=== PATIENT | male | born 1960 | race African-American/Black ===

== ENCOUNTER 2017-02-20 12:20 | Emergency (ER) | payer MEDICAID, MEDICARE ==
[~2017-02-20] VITALS: Ht 175.3 cm; Wt 80.0 kg
[2017-02-20] MEDS ORDERED: KETOROLAC 60MG/2ML VIAL IM ONE (15:30)
[2017-02-20 17:49] VITALS: BP 136/81
== END 2017-02-20 19:02 | disposition home or self-care (01) ==
LOC: ER 12:58
DX: M54.5 Low back pain (principal); F10.129 Alcohol abuse with intoxication, unspecified; I10 Essential (primary) hypertension; Y90.8 Blood alcohol level of 240 mg/100 ml or more; W01.0XXA Fall on same level from slipping, tripping and stumbling without subsequent striking against object, initial encounter; Y93.89 Activity, other specified; Y92.511 Restaurant or cafe as the place of occurrence of the external cause
CPT/HCPCS: 36415; 72100; 96372; 99285; G0482; J1885; Z7610

== ENCOUNTER 2017-05-11 20:15 | Emergency (ER) | payer MEDICAID, OTHER ==
[~2017-05-11] VITALS: Ht 185.4 cm; Wt 95.0 kg
[2017-05-12 03:51] LABS: HEMATOCRIT. 28.4 % (42.0-52.0); HEMOGLOBIN. 9.6 g/dL (14.0-18.0); MEAN CORPUSCULAR HEMOGLOBIN 35.8 pg (28.0-32.0); MEAN CORPUSCULAR VOLUME 105.3 fL (80.0-94.0); MEAN PLATELET VOLUME 7.3 fl (7.4-10.4); PLATELET 212 x1000/uL (130-400); RED BLOOD CELL COUNT 2.69 mill/uL (4.7-6.1); RED CELL DISTRIBUTION WIDTH 13.3 % (11.6-14.6)
[2017-05-12 03:57] LABS: PROTHROMBIN TIME 10.8 sec (9.4-11.6)
[2017-05-12 04:06] LABS: CARBON DIOXIDE 27 mEq/L (21-32); CHLORIDE 106 mEq/L (98-107); TROPONIN I < 0.02 ng/mL (0.00-0.04)
[2017-05-12 04:42] LABS: PLATELET ESTIMATE NORMAL
[2017-05-12 05:40] VITALS: BP 108/66
== END 2017-05-12 05:45 | disposition home or self-care (01) ==
LOC: ER 20:15
DX: F10.20 Alcohol dependence, uncomplicated (principal); D63.8 Anemia in other chronic diseases classified elsewhere; Y90.9 Presence of alcohol in blood, level not specified; R06.02 Shortness of breath; R60.0 Localized edema; I10 Essential (primary) hypertension; Z96.659 Presence of unspecified artificial knee joint
CPT/HCPCS: 36415; 71010; 80053; 83880; 84484; 85025; 85610; 93005; 99285

== ENCOUNTER 2017-05-15 11:32 | Inpatient (IN) | payer MEDICAID, OTHER ==
[~2017-05-15] VITALS: Ht 185.4 cm; Wt 113.4 kg
[2017-05-15 14:08] LABS: BASOPHILS % 2.6 % (0.0-2.0); EOSINOPHILS % 2.8 % (0.0-5.0); HEMOGLOBIN. 10.8 g/dL (14.0-18.0); MEAN CORPUSCULAR HEMOGLOBIN 35.6 pg (28.0-32.0); MEAN CORPUSCULAR VOLUME 104.9 fL (80.0-94.0); MONOCYTES % 11.1 % (2.0-8.0); NEUTROPHILS % 49.5 % (40.0-76.0); PLATELET 388 x1000/uL (130-400); RED BLOOD CELL COUNT 3.05 mill/uL (4.7-6.1); RED CELL DISTRIBUTION WIDTH 13.1 % (11.6-14.6)
[2017-05-15 14:18] LABS: INR 1.1; PARTIAL THROMBOPLASTIN TIME 25.9 sec (23.4-31.0); PROTHROMBIN TIME 10.9 sec (9.4-11.6)
[2017-05-15 14:24] LABS: CARBON DIOXIDE 23 mEq/L (21-32); CHLORIDE 108 mEq/L (98-107); TROPONIN I < 0.02 ng/mL (0.00-0.04)
[2017-05-15 14:37] LABS: ETHANOL BLOOD 376 mg/dL
[2017-05-15] MEDS ORDERED: ASPIRIN 325MG EC TABLET PO ONE (15:30)
[2017-05-15] MEDS ORDERED: DEXT 5%/0.45% NACL 500ML 500 ML IV SCH (16:45)
[2017-05-15] MEDS: DEXT 5%/0.45% NACL 1000ML 1,000 ML IV SCH (17:24)
[2017-05-15] MEDS: AMLODIPINE 5MG TABLET PO SCH (17:24)
[2017-05-15 17:32] VITALS: BP 140/97
[2017-05-15] MEDS ORDERED: PNEUMOCOCCAL 23-VAL P-SAC VAC 0.5 ML IM ONE (19:00)
[2017-05-15] MEDS ORDERED: DOCUSATE SODIUM 100MG CAPSULE PO PRN (19:45)
[2017-05-15] MEDS ORDERED: ONDANSETRON HCL 4MG/2ML VIAL IV PRN (19:45)
[2017-05-15 20:00] VITALS: BP 99/44
[2017-05-15] MEDS: SODIUM CHLORIDE 0.9% INJ 3ML FLUSH IVF SCH (21:16)
[2017-05-15 22:56] LABS: CLARITY URINE CLEAR (CLEAR); COLOR URINE YELLOW (YELLOW); GLUCOSE URINE NEGATIVE (NEGATIVE); KETONES URINE NEGATIVE (NEGATIVE); LEUKOCYTE ESTERASE URINE NEGATIVE (NEGATIVE); NITRITE URINE NEGATIVE (NEGATIVE); OCCULT BLOOD URINE NEGATIVE (NEGATIVE); PROTEIN URINE NEGATIVE (NEGATIVE); SPECIFIC GRAVITY URINE 1.009 (1.005-1.030); UROBILINOGEN URINE 0.2 E.U./dL (0.2-1.0)
[2017-05-15 23:08] LABS: *AMPHETAMINES SCREEN URINE NEGATIVE (NEGATIVE); *BARBITURATES SCREEN URINE NEGATIVE (NEGATIVE); *BENZODIAZEPINES SCREEN URINE NEGATIVE (NEGATIVE); *COCAINE SCREEN URINE NEGATIVE (NEGATIVE); CANNABINOID URINE SCREEN NEGATIVE (NEGATIVE); METHADONE URINE SCREEN NEGATIVE (NEGATIVE); OPIATES URINE SCREEN NEGATIVE (NEGATIVE); PHENCYCLIDINE URINE SCREEN NEGATIVE (NEGATIVE)
[2017-05-16] VITALS: BP 100/59
[2017-05-16 04:00] VITALS: BP 155/88
[2017-05-16] MEDS: SODIUM CHLORIDE 0.9% INJ 3ML FLUSH IVF SCH ×3 (04:29→20:57)
[2017-05-16] MEDS: DEXT 5%/0.45% NACL 1000ML 1,000 ML IV SCH ×2 (04:29→17:43)
[2017-05-16] MEDS: ACETAMINOPHEN 325MG TABLET PO PRN ×2 (05:45→20:58)
[2017-05-16 06:32] LABS: HEMOGLOBIN. 11.1 g/dL (14.0-18.0); MEAN CORPUSCULAR HEMOGLOBIN 35.5 pg (28.0-32.0); MEAN PLATELET VOLUME 7.7 fl (7.4-10.4); PLATELET 383 x1000/uL (130-400); RED BLOOD CELL COUNT 3.14 mill/uL (4.7-6.1); RED CELL DISTRIBUTION WIDTH 13.2 % (11.6-14.6)
[2017-05-16 07:03] LABS: CHLORIDE 105 mEq/L (98-107)
[2017-05-16 07:30] LABS: CARBON DIOXIDE 26 mEq/L (21-32); CREATINE KINASE MB FRACTION 2.4 ng/mL (0.5-3.6); HDL CHOLESTEROL 116 mg/dL (40-59); LDL CHOLESTEROL 89 mg/dL (5-100); TROPONIN I < 0.02 ng/mL (0.00-0.04)
[2017-05-16 08:00] VITALS: BP 161/89
[2017-05-16] MEDS: AMLODIPINE 5MG TABLET PO SCH (08:33)
[2017-05-16] MEDS: MULTIVITAMINS,THER W-MINERALS TABLET PO SCH (08:33)
[2017-05-16] MEDS: ASPIRIN 81MG EC TABLET PO SCH (08:34)
[2017-05-16 14:16] LABS: NUCLEATED RED BLOOD CELLS 1 /100 WBC; PLATELET ESTIMATE NORMAL
[2017-05-16 16:00] VITALS: BP 143/86
[2017-05-16 20:00] VITALS: BP 147/89
[2017-05-17] VITALS: BP 140/89
[2017-05-17] MEDS: SODIUM CHLORIDE 0.9% INJ 3ML FLUSH IVF SCH ×3 (03:11→21:05)
[2017-05-17 04:00] VITALS: BP 134/87
[2017-05-17] MEDS: DEXT 5%/0.45% NACL 1000ML 1,000 ML IV SCH (05:26)
[2017-05-17 08:00] VITALS: BP 124/91
[2017-05-17] MEDS: MULTIVITAMINS,THER W-MINERALS TABLET PO SCH (08:49)
[2017-05-17] MEDS: AMLODIPINE 5MG TABLET PO SCH (08:49)
[2017-05-17] MEDS: ASPIRIN 81MG EC TABLET PO SCH (08:49)
[2017-05-17 08:52] LABS: BASOPHILS % 1.3 % (0.0-2.0); EOSINOPHILS % 1.7 % (0.0-5.0); HEMATOCRIT. 36.5 % (42.0-52.0); HEMOGLOBIN. 12.5 g/dL (14.0-18.0); LYMPHOCYTES % 21.9 % (20.0-50.0); MEAN CORPUSCULAR HEMOGLOBIN 35.9 pg (28.0-32.0); MEAN CORPUSCULAR VOLUME 104.9 fL (80.0-94.0); MEAN PLATELET VOLUME 7.8 fl (7.4-10.4); MONOCYTES % 12.6 % (2.0-8.0); NEUTROPHILS % 62.5 % (40.0-76.0); PLATELET 379 x1000/uL (130-400); RED BLOOD CELL COUNT 3.47 mill/uL (4.7-6.1); RED CELL DISTRIBUTION WIDTH 12.9 % (11.6-14.6)
[2017-05-17 09:23] LABS: AMYLASE 54 IU/L (25-115); CARBON DIOXIDE 28 mEq/L (21-32); CHLORIDE 98 mEq/L (98-107); TROPONIN I < 0.02 ng/mL (0.00-0.04)
[2017-05-17 12:00] VITALS: BP 130/98
[2017-05-17 16:00] VITALS: BP 132/82
[2017-05-17 20:00] VITALS: BP 130/97
[2017-05-18] VITALS: BP 137/84
[2017-05-18 04:00] VITALS: BP 126/71
[2017-05-18] MEDS: SODIUM CHLORIDE 0.9% INJ 3ML FLUSH IVF SCH (06:28)
[2017-05-18] MEDS: ACETAMINOPHEN 325MG TABLET PO PRN (09:02)
[2017-05-18] MEDS: AMLODIPINE 5MG TABLET PO SCH (09:02)
[2017-05-18] MEDS: ASPIRIN 81MG EC TABLET PO SCH (09:02)
[2017-05-18] MEDS: MULTIVITAMINS,THER W-MINERALS TABLET PO SCH (09:02)
[2017-05-18 10:21] LABS: BASOPHILS % 0.9 % (0.0-2.0); EOSINOPHILS % 2.2 % (0.0-5.0); HEMATOCRIT. 35.1 % (42.0-52.0); HEMOGLOBIN. 12.1 g/dL (14.0-18.0); MEAN CORPUSCULAR HEMOGLOBIN 36.6 pg (28.0-32.0); MEAN CORPUSCULAR VOLUME 105.9 fL (80.0-94.0); MEAN PLATELET VOLUME 7.7 fl (7.4-10.4); MONOCYTES % 12.8 % (2.0-8.0); NEUTROPHILS % 69.1 % (40.0-76.0); PLATELET 346 x1000/uL (130-400); RED BLOOD CELL COUNT 3.32 mill/uL (4.7-6.1); RED CELL DISTRIBUTION WIDTH 12.9 % (11.6-14.6)
[2017-05-18 10:38] VITALS: BP 126/88
[2017-05-18 10:45] LABS: CARBON DIOXIDE 28 mEq/L (21-32); CHLORIDE 102 mEq/L (98-107)
== END 2017-05-18 11:40 | disposition home or self-care (01) | DRG 282 ==
LOC: ER 11:35 → EDBEDREQTM 15:40 → EDBEDREQ 15:40 → ENRESERV 15:52 → 7WST 16:48
PROVIDERS: ADMIT Internal Medicine; ATTEND Internal Medicine
DX: K85.90 Acute pancreatitis without necrosis or infection, unspecified (principal); I24.9 Acute ischemic heart disease, unspecified; I11.9 Hypertensive heart disease without heart failure; F10.129 Alcohol abuse with intoxication, unspecified; F17.200 Nicotine dependence, unspecified, uncomplicated; Z96.659 Presence of unspecified artificial knee joint; Z60.2 Problems related to living alone; R60.0 Localized edema; Y90.8 Blood alcohol level of 240 mg/100 ml or more; Z71.6 Tobacco abuse counseling; Z59.0 Homelessness; Z79.899 Other long term (current) drug therapy
CPT/HCPCS: 36415; 71010; 80048; 80053; 80061; 80305; 81003; 82150; 82553; 83690; 83880; 84443; 84484; 85025; 85610; 85730; 87040; 87086; 87186; 93005; 93306; 93971; 97162; 99285; C1893; G0482; J2405; J3490

== ENCOUNTER 2017-05-21 18:35 | Inpatient (IN) | payer MEDICAID ==
[~2017-05-21] VITALS: Ht 185.4 cm; Wt 102.1 kg
[2017-05-21] MEDS ORDERED: SODIUM CHLORIDE 0.9% 1,000 ML IV ONE (19:26)
[2017-05-21] MEDS ORDERED: MAGNESIUM/ALUMINUM HYDROXIDE/SIMETHICONE 30ML UDC PO STA (19:26)
[2017-05-21] MEDS ORDERED: ONDANSETRON HCL 4MG/2ML VIAL IV STA (19:26)
[2017-05-21] MEDS ORDERED: FAMOTIDINE 20MG/2ML VIAL IV ONE (19:30)
[2017-05-21 19:56] LABS: HEMATOCRIT. 29.4 % (42.0-52.0); MEAN CORPUSCULAR HEMOGLOBIN 36.1 pg (28.0-32.0); MEAN CORPUSCULAR VOLUME 106.1 fL (80.0-94.0); MEAN PLATELET VOLUME 7.5 fl (7.4-10.4); PLATELET 226 x1000/uL (130-400); RED BLOOD CELL COUNT 2.77 mill/uL (4.7-6.1)
[2017-05-21 20:02] LABS: PARTIAL THROMBOPLASTIN TIME 26.8 sec (23.4-31.0); PROTHROMBIN TIME 10.5 sec (9.4-11.6)
[2017-05-21 20:11] LABS: CARBON DIOXIDE 25 mEq/L (21-32); CHLORIDE 106 mEq/L (98-107); TROPONIN I < 0.02 ng/mL (0.00-0.04)
[2017-05-21 20:13] LABS: ETHANOL BLOOD 353 mg/dL
[2017-05-21 20:14] LABS: PLATELET ESTIMATE NORMAL
[2017-05-21] MEDS ORDERED: MORPHINE SULFATE 4 MG/ML CPJ (NOT FOR IM USE) IV ONE (20:45)
[2017-05-21] MEDS ORDERED: ONDANSETRON HCL 4MG/2ML VIAL IV ONE (20:45)
[2017-05-21 23:54] LABS: CLARITY URINE CLEAR (CLEAR); COLOR URINE YELLOW (YELLOW); GLUCOSE URINE NEGATIVE (NEGATIVE); KETONES URINE NEGATIVE (NEGATIVE); LEUKOCYTE ESTERASE URINE NEGATIVE (NEGATIVE); NITRITE URINE NEGATIVE (NEGATIVE); OCCULT BLOOD URINE NEGATIVE (NEGATIVE); PROTEIN URINE NEGATIVE (NEGATIVE); SPECIFIC GRAVITY URINE 1.016 (1.005-1.030); UROBILINOGEN URINE 0.2 E.U./dL (0.2-1.0)
[2017-05-22 00:30] LABS: *AMPHETAMINES SCREEN URINE NEGATIVE (NEGATIVE); *BARBITURATES SCREEN URINE NEGATIVE (NEGATIVE); *BENZODIAZEPINES SCREEN URINE NEGATIVE (NEGATIVE); *COCAINE SCREEN URINE NEGATIVE (NEGATIVE); CANNABINOID URINE SCREEN PRESUMTIVE POSITIVE (NEGATIVE); METHADONE URINE SCREEN NEGATIVE (NEGATIVE); OPIATES URINE SCREEN NEGATIVE (NEGATIVE); PHENCYCLIDINE URINE SCREEN NEGATIVE (NEGATIVE)
[2017-05-22 04:00] VITALS: BP 114/66
[2017-05-22] MEDS ORDERED: ONDANSETRON HCL 4MG/2ML VIAL IV PRN (05:15)
[2017-05-22] MEDS ORDERED: PANTOPRAZOLE SODIUM 40 MG/VIAL IV SCH (06:00)
[2017-05-22] MEDS: DEXT 5%/0.45% NACL KCL 20MEQ/L 1,000 ML IV SCH (07:00)
[2017-05-22 08:00] VITALS: BP 148/91
[2017-05-22] MEDS ORDERED: KETO5DRO7 (08:21)
[2017-05-22] MEDS ORDERED: AMLO10TA80 PO (08:21)
[2017-05-22] MEDS ORDERED: IBUP-2030 PO (08:21)
[2017-05-22] MEDS ORDERED: LOSA25TA12 (08:21)
[2017-05-22] MEDS ORDERED: THIAMINE HCL 100 MG/1 ML 2ML VIAL ONE (09:17)
[2017-05-22 09:32] LABS: HEMATOCRIT. 30.9 % (42.0-52.0); HEMOGLOBIN. 10.6 g/dL (14.0-18.0); MEAN CORPUSCULAR HEMOGLOBIN 36.2 pg (28.0-32.0); MEAN PLATELET VOLUME 7.6 fl (7.4-10.4); PLATELET 232 x1000/uL (130-400); RED BLOOD CELL COUNT 2.92 mill/uL (4.7-6.1); RED CELL DISTRIBUTION WIDTH 12.9 % (11.6-14.6)
[2017-05-22 10:00] LABS: CARBON DIOXIDE 25 mEq/L (21-32); CHLORIDE 108 mEq/L (98-107)
[2017-05-22] MEDS: FAMOTIDINE 20MG/2ML VIAL IV SCH ×2 (10:21→21:00)
[2017-05-22] MEDS: FOLIC ACID 1 MG, THIAMINE HCL 100 MG, MVI, ADULT NO.1 10 ML in DEXTROSE 5% WATER 1,000 ML IV NR ×8 (10:22→16:00)
[2017-05-22 12:00] VITALS: BP 149/89
[2017-05-22 16:00] VITALS: BP 151/91
[2017-05-22 20:00] VITALS: BP 152/95
[2017-05-22 22:39] LABS: PLATELET ESTIMATE NORMAL
[2017-05-23] VITALS: BP 143/84
[2017-05-23] MEDS: DEXT 5%/0.45% NACL KCL 20MEQ/L 1,000 ML IV SCH ×3 (00:09→17:15)
[2017-05-23] MEDS: MORPHINE SULFATE 4 MG/ML CPJ (NOT FOR IM USE) IV PRN ×5 (00:43→22:07)
[2017-05-23 08:00] VITALS: BP 142/92
[2017-05-23] MEDS: FAMOTIDINE 20MG/2ML VIAL IV SCH ×2 (08:32→21:21)
[2017-05-23 12:00] VITALS: BP 123/85
[2017-05-23] MEDS: CHLORDIAZEPOXIDE 25MG CAPSULE PO SCH ×2 (14:48→21:21)
[2017-05-23 16:00] VITALS: BP 132/79
[2017-05-23 20:00] VITALS: BP 127/85
[2017-05-24] VITALS: BP 128/81
[2017-05-24 04:00] VITALS: BP 128/78
[2017-05-24] MEDS: CHLORDIAZEPOXIDE 25MG CAPSULE PO SCH (05:36)
[2017-05-24] MEDS: MORPHINE SULFATE 4 MG/ML CPJ (NOT FOR IM USE) IV PRN ×2 (05:37→11:42)
[2017-05-24] MEDS: DEXT 5%/0.45% NACL KCL 20MEQ/L 1,000 ML IV SCH ×2 (05:43→08:48)
[2017-05-24] MEDS: FAMOTIDINE 20MG/2ML VIAL IV SCH (08:48)
[2017-05-24] MEDS ORDERED: IBUPROFEN 800MG TABLET PO PRN (15:45)
[2017-05-24 15:50] VITALS: BP 115/81
[2017-05-25] MEDS ORDERED: AMLODIPINE 10MG TABLET PO SCH (09:00)
== END 2017-05-24 15:50 | disposition home or self-care (01) | DRG 282 ==
LOC: ER 18:35 → 6EST 20:43 → EDBEDREQ 20:46 → ENRESERV 05-22 01:47
PROVIDERS: ADMIT Internal Medicine; ATTEND Internal Medicine
DX: K85.20 Alcohol induced acute pancreatitis without necrosis or infection (principal); R16.0 Hepatomegaly, not elsewhere classified; I10 Essential (primary) hypertension; G57.93 Unspecified mononeuropathy of bilateral lower limbs; Z96.659 Presence of unspecified artificial knee joint; F10.129 Alcohol abuse with intoxication, unspecified; J45.909 Unspecified asthma, uncomplicated
CPT/HCPCS: 36415; 71010; 76705; 80053; 80305; 81003; 83690; 83880; 84484; 85025; 85610; 85730; 93005; 96361; 96374; 96375; 97116; 97162; 99285; G0482; J2270; J2405; J3411; J3490; J7030; J7070

== ENCOUNTER 2017-05-25 14:59 | Emergency (ER) | payer MEDICAID ==
[~2017-05-25] VITALS: Ht 180.3 cm; Wt 80.0 kg
[~2017-05-25 14:59] MED LIST: AMLO10TA80 PO; IBUP-2030 PO; KETO5DRO7; LOSA25TA12
[2017-05-25] MEDS ORDERED: IBUPROFEN 600MG TABLET PO STA (15:15)
[2017-05-25 15:38] VITALS: BP 120/76
[2017-05-25 15:49] LABS: CHLORIDE 104 mEq/L (98-107); EOSINOPHILS % 1.6 % (0.0-5.0); HEMATOCRIT. 31.9 % (42.0-52.0); HEMOGLOBIN. 10.9 g/dL (14.0-18.0); LYMPHOCYTES % 24.6 % (20.0-50.0); MEAN CORPUSCULAR HEMOGLOBIN 35.8 pg (28.0-32.0); MEAN CORPUSCULAR VOLUME 104.8 fL (80.0-94.0); MEAN PLATELET VOLUME 8.1 fl (7.4-10.4); MONOCYTES % 13.8 % (2.0-8.0); PLATELET 225 x1000/uL (130-400); RED BLOOD CELL COUNT 3.05 mill/uL (4.7-6.1); RED CELL DISTRIBUTION WIDTH 12.2 % (11.6-14.6)
[2017-05-25 15:55] LABS: CARBON DIOXIDE 21 mEq/L (21-32)
[2017-05-25 16:20] LABS: ETHANOL BLOOD 308 mg/dL
== END 2017-05-25 17:27 | disposition left against medical advice (07) ==
LOC: ER 15:04
DX: K86.1 Other chronic pancreatitis (principal); F10.129 Alcohol abuse with intoxication, unspecified; M25.561 Pain in right knee; M25.562 Pain in left knee; J45.909 Unspecified asthma, uncomplicated; I10 Essential (primary) hypertension; Z96.659 Presence of unspecified artificial knee joint
CPT/HCPCS: 36415; 80053; 83690; 85025; 99284; G0482; Z7610

== ENCOUNTER 2017-05-25 21:07 | Emergency (ER) | payer MEDICAID ==
[~2017-05-25] VITALS: Ht 185.4 cm; Wt 102.0 kg
[2017-05-25 21:35] VITALS: BP 134/76
== END 2017-05-26 01:17 | disposition left against medical advice (07) ==
LOC: ER 22:39
DX: Z53.21 Procedure and treatment not carried out due to patient leaving prior to being seen by health care provider (principal)

== ENCOUNTER 2017-05-27 23:21 | Inpatient (IN) | payer MEDICAID, OTHER ==
[~2017-05-27] VITALS: Ht 185.4 cm; Wt 101.6 kg
[2017-05-27] MEDS ORDERED: SODIUM CHLORIDE 0.9% 1,000 ML IV ONE (23:51)
[2017-05-27] MEDS ORDERED: ONDANSETRON HCL 4MG/2ML VIAL IV STA (23:51)
[2017-05-27] MEDS ORDERED: MORPHINE SULFATE 4 MG/ML CPJ (NOT FOR IM USE) IV STA (23:51)
[2017-05-28 00:20] LABS: HEMATOCRIT. 30.9 % (42.0-52.0); HEMOGLOBIN. 10.5 g/dL (14.0-18.0); MEAN CORPUSCULAR HEMOGLOBIN 35.7 pg (28.0-32.0); MEAN CORPUSCULAR VOLUME 105.4 fL (80.0-94.0); MEAN PLATELET VOLUME 8.9 fl (7.4-10.4); PLATELET 178 x1000/uL (130-400); RED BLOOD CELL COUNT 2.93 mill/uL (4.7-6.1); RED CELL DISTRIBUTION WIDTH 12.8 % (11.6-14.6)
[2017-05-28 00:23] LABS: CHLORIDE 109 mEq/L (98-107)
[2017-05-28 00:24] LABS: CLARITY URINE CLEAR (CLEAR); COLOR URINE YELLOW (YELLOW); GLUCOSE URINE NEGATIVE (NEGATIVE); KETONES URINE NEGATIVE (NEGATIVE); LEUKOCYTE ESTERASE URINE NEGATIVE (NEGATIVE); NITRITE URINE NEGATIVE (NEGATIVE); OCCULT BLOOD URINE NEGATIVE (NEGATIVE); PROTEIN URINE NEGATIVE (NEGATIVE); SPECIFIC GRAVITY URINE 1.014 (1.005-1.030); UROBILINOGEN URINE 0.2 E.U./dL (0.2-1.0)
[2017-05-28 00:25] LABS: PROTHROMBIN TIME 10.7 sec (9.4-11.6)
[2017-05-28 00:31] LABS: CARBON DIOXIDE 25 mEq/L (21-32)
[2017-05-28 02:00] LABS: ATYPICAL LYMPHOCYTES 1; PLATELET ESTIMATE NORMAL
[2017-05-28] MEDS ORDERED: MORPHINE SULFATE 4 MG/ML CPJ (NOT FOR IM USE) IV ONE (02:00)
[2017-05-28] MEDS ORDERED: ONDANSETRON HCL 4MG/2ML VIAL IV ONE (02:00)
[2017-05-28] MEDS ORDERED: DIATR MEGLU/DIATRIZOATE SOLN 120ML ONE (06:00)
[2017-05-28 08:00] VITALS: BP 146/81
[2017-05-28 08:30] VITALS: BP 146/81
[2017-05-28] MEDS ORDERED: HYDROCODONE/ACETAMINOPHEN 10/325MG TABLET PO PRN (09:45)
[2017-05-28] MEDS ORDERED: LORAZEPAM 2MG/ML CPJ IV PRN (09:45)
[2017-05-28 10:59] LABS: BASOPHILS % 0.6 % (0.0-2.0); EOSINOPHILS % 1.1 % (0.0-5.0); HEMATOCRIT. 31.9 % (42.0-52.0); HEMOGLOBIN. 10.7 g/dL (14.0-18.0); LYMPHOCYTES % 24.4 % (20.0-50.0); MEAN CORPUSCULAR HEMOGLOBIN 35.3 pg (28.0-32.0); MEAN CORPUSCULAR VOLUME 105.4 fL (80.0-94.0); MEAN PLATELET VOLUME 8.1 fl (7.4-10.4); MONOCYTES % 13.9 % (2.0-8.0); PLATELET 168 x1000/uL (130-400); RED BLOOD CELL COUNT 3.03 mill/uL (4.7-6.1); RED CELL DISTRIBUTION WIDTH 12.4 % (11.6-14.6)
[2017-05-28] MEDS ORDERED: FOLIC ACID 1 MG, THIAMINE HCL 100 MG, MVI, ADULT NO.1 10 ML in DEXTROSE 5% WATER 1,000 ML IV ONE ×4 (11:30)
[2017-05-28 11:31] LABS: CARBON DIOXIDE 28 mEq/L (21-32); CHLORIDE 112 mEq/L (98-107)
[2017-05-28 12:00] VITALS: BP 133/74
[2017-05-28 16:39] VITALS: BP 133/76
[2017-05-28] MEDS ORDERED: DEXTROSE 5% WATER 1,000 ML IV SCH (20:00)
[2017-05-29] MEDS ORDERED: FOLIC ACID 1 MG, THIAMINE HCL 100 MG, MVI, ADULT NO.1 10 ML in DEXTROSE 5% WATER 1,000 ML IV SCH ×4 (12:30)
== END 2017-05-28 17:00 | disposition home or self-care (01) | DRG 48 ==
LOC: ER 23:21 → 6EST 05-28 03:06 → ENRESERV 05-28 07:04 → 6EST 05-28 12:30
PROVIDERS: ADMIT Internal Medicine; ATTEND Internal Medicine
DX: G62.1 Alcoholic polyneuropathy (principal); I10 Essential (primary) hypertension; F17.210 Nicotine dependence, cigarettes, uncomplicated; M10.9 Gout, unspecified; K57.90 Diverticulosis of intestine, part unspecified, without perforation or abscess without bleeding; K46.9 Unspecified abdominal hernia without obstruction or gangrene; F10.10 Alcohol abuse, uncomplicated; Z82.49 Family history of ischemic heart disease and other diseases of the circulatory system; Z79.899 Other long term (current) drug therapy
CPT/HCPCS: 36415; 71010; 74176; 80053; 81003; 83605; 83690; 85025; 85610; 86850; 86900; 93005; 96374; 96375; 96376; 99291; J2270; J2405; J3411; J3490; J7030; J7070; Q9963

== ENCOUNTER 2017-05-31 23:07 | Emergency (ER) | payer MEDICAID ==
[~2017-05-31] VITALS: Ht 185.4 cm; Wt 91.0 kg
[2017-06-01 00:57] LABS: BASOPHILS % 0.3 % (0.0-2.0); EOSINOPHILS % 1.9 % (0.0-5.0); HEMATOCRIT. 31.1 % (42.0-52.0); HEMOGLOBIN. 10.7 g/dL (14.0-18.0); LYMPHOCYTES % 33.2 % (20.0-50.0); MEAN CORPUSCULAR HEMOGLOBIN 35.8 pg (28.0-32.0); MEAN CORPUSCULAR VOLUME 103.5 fL (80.0-94.0); MEAN PLATELET VOLUME 8.5 fl (7.4-10.4); MONOCYTES % 11.9 % (2.0-8.0); NEUTROPHILS % 52.7 % (40.0-76.0); PLATELET 159 x1000/uL (130-400); RED CELL DISTRIBUTION WIDTH 12.4 % (11.6-14.6)
[2017-06-01 01:02] LABS: CHLORIDE 101 mEq/L (98-107)
[2017-06-01 01:11] LABS: CARBON DIOXIDE 25 mEq/L (21-32)
[2017-06-01 01:30] LABS: *AMPHETAMINES SCREEN URINE NEGATIVE (NEGATIVE); *BARBITURATES SCREEN URINE NEGATIVE (NEGATIVE); *BENZODIAZEPINES SCREEN URINE PRESUMTIVE POSITIVE (NEGATIVE); *COCAINE SCREEN URINE NEGATIVE (NEGATIVE); CANNABINOID URINE SCREEN PRESUMTIVE POSITIVE (NEGATIVE); METHADONE URINE SCREEN NEGATIVE (NEGATIVE); OPIATES URINE SCREEN PRESUMTIVE POSITIVE (NEGATIVE); PHENCYCLIDINE URINE SCREEN NEGATIVE (NEGATIVE)
[2017-06-01 01:36] LABS: BG BASE EXCESS -5.2 mmol/L (-2.0-2.0); BG CARBOXYHEMOGLOBIN 1.1 % (0.5-1.5); BG DEOXYHEMOGLOBIN 5.5 % (0.0-5.0); BG FRACTION INSPIRED OXYGEN 21; BG HCO3 ACT 19.7 mmol/L (22.0-26.0); BG METHEMOGLOBIN 0.3 % (0.0-1.5); BG OXYGEN SATURATION 94.4 % (92.0-98.5); BG OXYHEMOGLOBIN 93.1 % (94.0-97.0); BG PCO2 36.4 mmHg (35.0-45.0); BG PH 7.352 (7.350-7.450); BG PO2 84.5 mmHg (75.0-100.0); BG SAMPLE SITE RIGHT RADIAL; BG TOTAL HEMOGLOBIN 11.6 g/dL (12.0-18.0); BG VENT MODE ROOM AIR
[2017-06-01 01:43] LABS: ETHANOL BLOOD 307 mg/dL
[2017-06-01 09:30] VITALS: BP 128/82
== END 2017-06-01 10:04 | disposition home or self-care (01) ==
LOC: ER 23:07
DX: T51.8X1A Toxic effect of other alcohols, accidental (unintentional), initial encounter (principal); G93.40 Encephalopathy, unspecified; I10 Essential (primary) hypertension; F17.200 Nicotine dependence, unspecified, uncomplicated; Y92.89 Other specified places as the place of occurrence of the external cause; Y90.8 Blood alcohol level of 240 mg/100 ml or more
CPT/HCPCS: 36415; 36600; 70450; 71010; 80053; 80305; 80307; 80329; 82375; 82805; 85025; 93005; 99285; G0482; Z7610

== ENCOUNTER 2017-06-08 22:00 | Emergency (ER) | payer MEDICAID, OTHER ==
[~2017-06-08] VITALS: Ht 185.4 cm; Wt 92.0 kg
[2017-06-08] MEDS ORDERED: KETOROLAC 60MG/2ML VIAL IM ONE (23:45)
[2017-06-09 00:27] LABS: CHLORIDE 104 mEq/L (98-107)
[2017-06-09 00:28] LABS: BASOPHILS % 0.7 % (0.0-2.0); EOSINOPHILS % 4.9 % (0.0-5.0); HEMATOCRIT. 29.6 % (42.0-52.0); HEMOGLOBIN. 10.1 g/dL (14.0-18.0); LYMPHOCYTES % 38.1 % (20.0-50.0); MEAN CORPUSCULAR HEMOGLOBIN 35.6 pg (28.0-32.0); MEAN CORPUSCULAR VOLUME 104.3 fL (80.0-94.0); MONOCYTES % 14.1 % (2.0-8.0); NEUTROPHILS % 42.2 % (40.0-76.0); PLATELET 245 x1000/uL (130-400); RED BLOOD CELL COUNT 2.84 mill/uL (4.7-6.1); RED CELL DISTRIBUTION WIDTH 12.4 % (11.6-14.6)
[2017-06-09 00:36] LABS: CARBON DIOXIDE 25 mEq/L (21-32); ETHANOL BLOOD 230 mg/dL
[2017-06-09 06:46] VITALS: BP 145/94
== END 2017-06-09 06:46 | disposition home or self-care (01) ==
LOC: ER 23:20
DX: F10.10 Alcohol abuse, uncomplicated (principal); R53.1 Weakness; R42 Dizziness and giddiness; F17.200 Nicotine dependence, unspecified, uncomplicated; I10 Essential (primary) hypertension
CPT/HCPCS: 36415; 73130; 80053; 80307; 85025; 96372; 99285; G0482; J1885; Z7610

== ENCOUNTER 2017-06-16 10:29 | Emergency (ER) | payer OTHER ==
[~2017-06-16] VITALS: Ht 180.3 cm; Wt 110.0 kg
[2017-06-16 14:38] VITALS: BP 114/81
== END 2017-06-16 15:31 | disposition left against medical advice (07) ==
LOC: ER 10:50
DX: M79.89 Other specified soft tissue disorders (principal); Z53.21 Procedure and treatment not carried out due to patient leaving prior to being seen by health care provider

== ENCOUNTER 2017-06-18 22:30 | Emergency (ER) | payer OTHER ==
[~2017-06-18] VITALS: Ht 185.4 cm; Wt 90.0 kg
[2017-06-19] MEDS ORDERED: SODIUM CHLORIDE 0.9% 1,000 ML IV ONE (05:00)
[2017-06-19 05:21] LABS: BASOPHILS % 0.7 % (0.0-2.0); EOSINOPHILS % 5.8 % (0.0-5.0); HEMATOCRIT. 30.7 % (42.0-52.0); HEMOGLOBIN. 10.4 g/dL (14.0-18.0); LYMPHOCYTES % 40.7 % (20.0-50.0); MEAN CORPUSCULAR HEMOGLOBIN 35.7 pg (28.0-32.0); MEAN CORPUSCULAR VOLUME 105.3 fL (80.0-94.0); MEAN PLATELET VOLUME 7.6 fl (7.4-10.4); MONOCYTES % 11.7 % (2.0-8.0); NEUTROPHILS % 41.1 % (40.0-76.0); PLATELET 194 x1000/uL (130-400); RED BLOOD CELL COUNT 2.92 mill/uL (4.7-6.1); RED CELL DISTRIBUTION WIDTH 13.1 % (11.6-14.6)
[2017-06-19 05:35] LABS: CARBON DIOXIDE 23 mEq/L (21-32); CHLORIDE 113 mEq/L (98-107); ETHANOL BLOOD 244 mg/dL
[2017-06-19 08:00] VITALS: BP 157/52
== END 2017-06-19 08:17 | disposition home or self-care (01) ==
LOC: ER 22:30
DX: F10.129 Alcohol abuse with intoxication, unspecified (principal); Y90.7 Blood alcohol level of 200-239 mg/100 ml; R11.10 Vomiting, unspecified; M79.89 Other specified soft tissue disorders; I10 Essential (primary) hypertension; J45.909 Unspecified asthma, uncomplicated; Z91.81 History of falling
CPT/HCPCS: 36415; 80053; 83690; 85025; 96360; 99284; G0482; J7030

== ENCOUNTER 2017-06-19 15:59 | Emergency (ER) | payer OTHER ==
[~2017-06-19] VITALS: Ht 185.4 cm; Wt 99.8 kg
[2017-06-19 16:00] VITALS: BP 108/71
== END 2017-06-19 20:30 | disposition left against medical advice (07) ==
LOC: ER 15:59
DX: Z53.21 Procedure and treatment not carried out due to patient leaving prior to being seen by health care provider (principal)

== ENCOUNTER 2017-06-19 22:26 | Emergency (ER) | payer OTHER ==
[~2017-06-19] VITALS: Ht 185.4 cm; Wt 95.0 kg
[2017-06-19 22:29] VITALS: BP 144/90
== END 2017-06-19 22:30 | disposition left against medical advice (07) ==
LOC: ER 22:26
DX: Z53.21 Procedure and treatment not carried out due to patient leaving prior to being seen by health care provider (principal); I10 Essential (primary) hypertension; F17.210 Nicotine dependence, cigarettes, uncomplicated; M10.9 Gout, unspecified; F10.10 Alcohol abuse, uncomplicated

== ENCOUNTER 2017-06-25 21:49 | Emergency (ER) | payer MEDICAID, OTHER ==
[~2017-06-25] VITALS: Ht 185.4 cm; Wt 95.4 kg
[2017-06-26] MEDS ORDERED: IBUPROFEN 600MG TABLET PO ONE (01:30)
[2017-06-26 01:50] LABS: BASOPHILS % 0.5 % (0.0-2.0); EOSINOPHILS % 5.7 % (0.0-5.0); HEMATOCRIT. 30.3 % (42.0-52.0); HEMOGLOBIN. 10.5 g/dL (14.0-18.0); MEAN CORPUSCULAR HEMOGLOBIN 36.9 pg (28.0-32.0); MEAN CORPUSCULAR VOLUME 106.6 fL (80.0-94.0); MEAN PLATELET VOLUME 7.4 fl (7.4-10.4); MONOCYTES % 14.7 % (2.0-8.0); NEUTROPHILS % 38.1 % (40.0-76.0); PLATELET 128 x1000/uL (130-400); RED BLOOD CELL COUNT 2.85 mill/uL (4.7-6.1); RED CELL DISTRIBUTION WIDTH 12.8 % (11.6-14.6)
[2017-06-26 01:59] LABS: CHLORIDE 110 mEq/L (98-107)
[2017-06-26 02:07] LABS: CARBON DIOXIDE 24 mEq/L (21-32); ETHANOL BLOOD 224 mg/dL
[2017-06-26 04:39] LABS: CLARITY URINE CLEAR (CLEAR); COLOR URINE YELLOW (YELLOW); GLUCOSE URINE NEGATIVE (NEGATIVE); KETONES URINE NEGATIVE (NEGATIVE); LEUKOCYTE ESTERASE URINE NEGATIVE (NEGATIVE); NITRITE URINE NEGATIVE (NEGATIVE); OCCULT BLOOD URINE NEGATIVE (NEGATIVE); PROTEIN URINE NEGATIVE (NEGATIVE); SPECIFIC GRAVITY URINE 1.013 (1.005-1.030); UROBILINOGEN URINE 0.2 E.U./dL (0.2-1.0)
[2017-06-26 04:51] LABS: *AMPHETAMINES SCREEN URINE NEGATIVE (NEGATIVE); *BARBITURATES SCREEN URINE NEGATIVE (NEGATIVE); *BENZODIAZEPINES SCREEN URINE NEGATIVE (NEGATIVE); *COCAINE SCREEN URINE NEGATIVE (NEGATIVE); CANNABINOID URINE SCREEN NEGATIVE (NEGATIVE); METHADONE URINE SCREEN NEGATIVE (NEGATIVE); OPIATES URINE SCREEN NEGATIVE (NEGATIVE); PHENCYCLIDINE URINE SCREEN NEGATIVE (NEGATIVE)
[2017-06-26 05:33] VITALS: BP 123/66
== END 2017-06-26 05:48 | disposition home or self-care (01) ==
LOC: ER 22:47
DX: S70.01XA Contusion of right hip, initial encounter (principal); M25.552 Pain in left hip; W01.0XXA Fall on same level from slipping, tripping and stumbling without subsequent striking against object, initial encounter; Y93.89 Activity, other specified; I10 Essential (primary) hypertension; Y92.89 Other specified places as the place of occurrence of the external cause; M10.9 Gout, unspecified; D53.9 Nutritional anemia, unspecified; D72.819 Decreased white blood cell count, unspecified; F10.229 Alcohol dependence with intoxication, unspecified; F17.210 Nicotine dependence, cigarettes, uncomplicated; Z98.890 Other specified postprocedural states
CPT/HCPCS: 36415; 73522; 80053; 80305; 81003; 85025; 99285; G0482

== ENCOUNTER 2018-04-18 13:28 | Emergency (ER) | payer MEDICAID, OTHER ==
[~2018-04-18] VITALS: Ht 185.4 cm; Wt 89.0 kg
[2018-04-18] MEDS ORDERED: HYDROCODONE/ACETAMINOPHEN 5/325MG TABLET PO ONE (14:45)
[2018-04-18 15:20] LABS: EOSINOPHILS % 1.3 % (0.0-5.0); HEMATOCRIT. 24.1 % (42.0-52.0); HEMOGLOBIN. 7.9 g/dL (14.0-18.0); LYMPHOCYTES % 11.1 % (20.0-50.0); MEAN CORPUSCULAR HEMOGLOBIN 38.4 pg (28.0-32.0); MEAN CORPUSCULAR VOLUME 117.4 fL (80.0-94.0); MEAN PLATELET VOLUME 7.6 fl (7.4-10.4); NEUTROPHILS % 75.6 % (40.0-76.0); PLATELET 707 x1000/uL (130-400); RED BLOOD CELL COUNT 2.05 mill/uL (4.7-6.1); RED CELL DISTRIBUTION WIDTH 18.6 % (11.6-14.6)
[2018-04-18 15:27] LABS: CHLORIDE 107 mEq/L (98-107)
[2018-04-18 15:28] LABS: INR 1.2; PARTIAL THROMBOPLASTIN TIME 28.7 sec (23.4-31.0); PROTHROMBIN TIME 11.7 sec (9.1-11.1)
[2018-04-18 15:42] LABS: PLATELET ESTIMATE MARKEDLY INCREASED
[2018-04-18 16:21] LABS: *AMPHETAMINES SCREEN URINE NEGATIVE (NEGATIVE)
[2018-04-18 16:22] LABS: *BARBITURATES SCREEN URINE NEGATIVE (NEGATIVE); *BENZODIAZEPINES SCREEN URINE PRESUMTIVE POSITIVE (NEGATIVE); *COCAINE SCREEN URINE NEGATIVE (NEGATIVE); METHADONE URINE SCREEN NEGATIVE (NEGATIVE)
[2018-04-18 16:23] LABS: CANNABINOID URINE SCREEN NEGATIVE (NEGATIVE); OPIATES URINE SCREEN NEGATIVE (NEGATIVE); PHENCYCLIDINE URINE SCREEN NEGATIVE (NEGATIVE)
[2018-04-18 18:00] VITALS: BP 115/60
[2018-04-20] MEDS ORDERED: LOSA25TA12 MT (13:02)
== END 2018-04-18 18:23 | disposition home or self-care (01) ==
LOC: ER 13:28
DX: M79.605 Pain in left leg (principal); M79.604 Pain in right leg; G89.29 Other chronic pain; R60.0 Localized edema; I10 Essential (primary) hypertension
CPT/HCPCS: 36415; 71045; 80053; 80305; 83690; 83880; 84484; 85025; 85610; 85730; 93970; 99285

== ENCOUNTER 2018-04-23 18:28 | Emergency (ER) | payer MEDICAID ==
[~2018-04-23] VITALS: Ht 180.3 cm; Wt 80.0 kg
[~2018-04-23 18:28] MED LIST changes: +LOSA25TA12 MT
[2018-04-23 21:40] VITALS: BP 102/60
[2018-04-23] MEDS ORDERED: IBUPROFEN 600MG TABLET PO ONE (21:45)
== END 2018-04-23 21:55 | disposition home or self-care (01) ==
LOC: ER 18:44
DX: M79.672 Pain in left foot (principal); M79.671 Pain in right foot; M10.9 Gout, unspecified; J45.909 Unspecified asthma, uncomplicated; E11.9 Type 2 diabetes mellitus without complications; Z79.899 Other long term (current) drug therapy
CPT/HCPCS: 99283

== ENCOUNTER 2021-01-10 20:52 | Emergency (ER) | payer MEDICAID ==
[~2021-01-10] VITALS: Ht 172.7 cm; Wt 99.8 kg
[~2021-01-10 20:52] MED LIST changes: -KETO5DRO7; -LOSA25TA12; -LOSA25TA12 MT; +LOSA25TA26 MT; +PROT20 PO
[2021-01-10] MEDS ORDERED: ASPIRIN 325MG EC TABLET PO ONE (22:45)
[2021-01-10 23:12] LABS: *AMPHETAMINES SCREEN URINE NEGATIVE (NEGATIVE); *BARBITURATES SCREEN URINE NEGATIVE (NEGATIVE)
[2021-01-10 23:13] LABS: *BENZODIAZEPINES SCREEN URINE NEGATIVE (NEGATIVE); *COCAINE SCREEN URINE NEGATIVE (NEGATIVE); CANNABINOID URINE SCREEN NEGATIVE (NEGATIVE); METHADONE URINE SCREEN NEGATIVE (NEGATIVE); OPIATES URINE SCREEN NEGATIVE (NEGATIVE); PHENCYCLIDINE URINE SCREEN NEGATIVE (NEGATIVE)
[2021-01-10 23:38] LABS: BASOPHILS % 0.5 % (0.0-2.0); HEMATOCRIT. 35.3 % (42.0-52.0); LYMPHOCYTES % 38.3 % (20.0-50.0); MEAN CORPUSCULAR HEMOGLOBIN 35.1 pg (28.0-32.0); MEAN CORPUSCULAR VOLUME 103.4 fL (80.0-94.0); MEAN PLATELET VOLUME 8.5 fl (7.4-10.4); MONOCYTES % 14.7 % (2.0-8.0); NEUTROPHILS % 42.5 % (40.0-76.0); PLATELET 182 x1000/uL (130-400); RED BLOOD CELL COUNT 3.41 mill/uL (4.7-6.1); RED CELL DISTRIBUTION WIDTH 13.8 % (11.6-14.6)
[2021-01-10 23:43] LABS: CHLORIDE 102 mEq/L (98-107)
[2021-01-10 23:48] LABS: ETHANOL BLOOD 138 mg/dL
[2021-01-11] MEDS ORDERED: POTASSIUM CHLORIDE 20MEQ TABLET SR PO NR (01:00)
[2021-01-11 02:53] VITALS: BP 120/84
== END 2021-01-11 02:55 | disposition home or self-care (01) ==
LOC: ER 20:52
DX: F10.129 Alcohol abuse with intoxication, unspecified (principal); Y90.6 Blood alcohol level of 120-199 mg/100 ml; I10 Essential (primary) hypertension; Z79.899 Other long term (current) drug therapy
CPT/HCPCS: 36415; 71045; 80053; 80305; 80320; 83880; 84484; 85025; 93005; 99285; G0480

== ENCOUNTER 2023-02-24 02:58 | Emergency (ER) | payer MEDICAID, OTHER ==
[~2023-02-24] VITALS: Ht 175.3 cm; Wt 96.0 kg
[2023-02-24 09:00] VITALS: BP 128/72
[2023-02-24] MEDS ORDERED: KETOROLAC 30MG/ML VIAL IM ONE (09:00)
[2023-02-24] MEDS ORDERED: NAPR-681 MT (09:31)
== END 2023-02-24 10:13 | disposition home or self-care (01) ==
LOC: ER 02:58
DX: S83.91XA Sprain of unspecified site of right knee, initial encounter (principal); I10 Essential (primary) hypertension; W01.0XXA Fall on same level from slipping, tripping and stumbling without subsequent striking against object, initial encounter; Y93.89 Activity, other specified; Y92.89 Other specified places as the place of occurrence of the external cause; Y99.8 Other external cause status
CPT/HCPCS: 73560; 73600; 96372; 99284; J1885

== ENCOUNTER 2023-10-22 22:27 | Emergency (ER) | payer OTHER ==
[~2023-10-22] VITALS: Ht 172.7 cm; Wt 102.0 kg
[~2023-10-22 22:27] MED LIST changes: +NAPR-681 MT
[2023-10-22 22:30] VITALS: BP 130/77; PULSE 58; RESP 16; O2SAT 96
[2023-10-22] MEDS ORDERED: ACETAMINOPHEN 325MG TABLET PO ONE (22:45)
[2023-10-23 01:51] VITALS: TEMP 97.8
[2023-10-23] MEDS: ACETAMINOPHEN 325MG TABLET PO NR (01:51)
[2023-10-23] MEDS ORDERED: LIDO700A15 TP (04:15)
[2023-10-23] MEDS ORDERED: TOPUD MT (04:15)
== END 2023-10-23 06:41 | disposition home or self-care (01) ==
LOC: ER 22:27
DX: G89.29 Other chronic pain (principal); M54.50 Low back pain, unspecified; I10 Essential (primary) hypertension
CPT/HCPCS: 72131; 73503; 73590; 73610; 99284

== ENCOUNTER 2024-11-09 19:33 | Emergency (ER) | payer OTHER ==
[~2024-11-09] VITALS: Ht 185.4 cm; Wt 107.0 kg
[~2024-11-09 19:33] MED LIST changes: +LIDO700A15 TP; +TOPUD MT
[2024-11-09 19:39] VITALS: BP 119/69; PULSE 76; RESP 18; TEMP 36.4; O2SAT 95
[2024-11-09] MEDS: KETOROLAC 15MG/ML VIAL IM ONE (22:45)
[2024-11-09] MEDS: LIDOCAINE 5% PATCH TOP SCH (22:45)
[2024-11-10] MEDS ORDERED: LIDO700A15 TP (01:38)
[2024-11-10] MEDS ORDERED: NAPR-1176 MT (01:38)
[2024-11-10] MEDS: KETOROLAC 15MG/ML VIAL IM NR (02:00)
== END 2024-11-10 02:03 | disposition home or self-care (01) ==
LOC: ER 19:33
DX: F10.129 Alcohol abuse with intoxication, unspecified (principal); M16.11 Unilateral primary osteoarthritis, right hip; I10 Essential (primary) hypertension; Z79.1 Long term (current) use of non-steroidal anti-inflammatories (NSAID); Z79.899 Other long term (current) drug therapy
CPT/HCPCS: 99283; 73502; J1885

== ENCOUNTER 2025-07-04 21:07 | Emergency (ER) | payer OTHER ==
[~2025-07-04] VITALS: Ht 172.7 cm; Wt 100.0 kg
[~2025-07-04 21:07] MED LIST changes: +LIDO-53 TP; -LIDO700A15 TP; +NAPR-1176 MT
[2025-07-04 21:08] VITALS: TEMP 36.8; O2SAT 98
[2025-07-04] MEDS ORDERED: NAPR-420 MT (23:08)
[2025-07-04 23:11] VITALS: BP 137/71; PULSE 86; RESP 16
[2025-07-04] MEDS: KETOROLAC 30MG/ML VIAL IM ONE (23:11)
== END 2025-07-05 01:34 | disposition home or self-care (01) ==
LOC: ER 21:07
DX: M25.561 Pain in right knee (principal); E11.9 Type 2 diabetes mellitus without complications; I10 Essential (primary) hypertension; M19.90 Unspecified osteoarthritis, unspecified site; Z79.1 Long term (current) use of non-steroidal anti-inflammatories (NSAID); Z59.00 Homelessness unspecified; Z79.899 Other long term (current) drug therapy
CPT/HCPCS: 99283; 73560; 96372; J1885

== ENCOUNTER 2025-07-05 04:49 | Emergency (ER) | payer OTHER ==
[~2025-07-05] VITALS: Ht 185.4 cm; Wt 114.0 kg
[~2025-07-05 04:49] MED LIST changes: +NAPR-420 MT
[2025-07-05 05:03] VITALS: O2SAT 99
[2025-07-05 06:14] VITALS: BP 156/84; PULSE 83; RESP 16; TEMP 36.7; O2SAT 100
== END 2025-07-05 06:15 | disposition home or self-care (01) ==
LOC: ER 04:49
DX: M25.551 Pain in right hip (principal); Z59.00 Homelessness unspecified; Z79.899 Other long term (current) drug therapy; Z79.1 Long term (current) use of non-steroidal anti-inflammatories (NSAID); E11.9 Type 2 diabetes mellitus without complications
CPT/HCPCS: 99282